=== PATIENT | female | born 1985 | race Caucasian/White ===

== ENCOUNTER 2016-12-25 16:49 | Emergency (ER) | payer OTHER ==
[~2016-12-25 16:49] MED LIST: ALBUTEROL17 GM INH; BACTRIM DS TABL1 TA1 PO; FLEXERIL PO; FLEXERIL10 MG PO; HYDROCODON-ACE1 EAC9 PO; HYDROCODONE-A1 UDTA4 PO; IBUPROFEN800 MG PO; KEFLEX250 M1 PO; MOTRIN400 M1 PO; NEURONTIN; NO MEDICATIONS; VICODIN
[2016-12-25] MEDS ORDERED: VIBRAMYCIN100 M1 PO (17:16)
[2016-12-25] MEDS ORDERED: ZOFRAN ODT4 M1 PO (17:16)
== END 2016-12-25 17:16 | disposition home or self-care (01) ==
LOC: SED 16:49
DX: S30.861A Insect bite (nonvenomous) of abdominal wall, initial encounter (principal); W57.XXXA Bitten or stung by nonvenomous insect and other nonvenomous arthropods, initial encounter; Y92.9 Unspecified place or not applicable; J45.909 Unspecified asthma, uncomplicated; Z90.49 Acquired absence of other specified parts of digestive tract; Z87.891 Personal history of nicotine dependence; Z88.5 Allergy status to narcotic agent
CPT/HCPCS: 99282

== ENCOUNTER → 2017-02-21 | Outpatient (CLI) | payer OTHER ==
[~2017-02-21] MED LIST changes: +VIBRAMYCIN100 M1 PO; +ZOFRAN ODT4 M1 PO
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
== END | disposition home or self-care (01) ==
LOC: SRAD 12:51
DX: M25.511 Pain in right shoulder (principal); M25.531 Pain in right wrist
CPT/HCPCS: 73030; 73110